=== PATIENT | female | born 1990 | race Caucasian/White ===

== ENCOUNTER → 2021-09-06 10:09 | Outpatient (BNVA) | payer BC, SELFPAY | PROVIDERS: Family Provider Family Medicine; PCP Family Medicine; Visit Provider Family Medicine | DX: Z00.00 Encounter for general adult medical examination without abnormal findings (principal); Z13.220 Encounter for screening for lipoid disorders; Z13.1 Encounter for screening for diabetes mellitus | CPT/HCPCS: 80053; 80061; 83036; 85025 ==

== ENCOUNTER → 2022-09-05 10:06 | Outpatient (BNVA) | payer BC, SELFPAY | PROVIDERS: Family Provider Family Medicine; PCP Family Medicine; Visit Provider Family Medicine | DX: N92.0 Excessive and frequent menstruation with regular cycle (principal); Z13.220 Encounter for screening for lipoid disorders; Z13.1 Encounter for screening for diabetes mellitus; Z51.81 Encounter for therapeutic drug level monitoring | CPT/HCPCS: 80053; 80061; 83036; 83550; 85025 ==

== ENCOUNTER 2022-09-10 08:05 | Outpatient (CLI) | payer BC, SELFPAY ==
--- NOTE | 2022-09-10 08:15 | US_ITS ---
WS: [id number] US pelv w/transvag [id number] HISTORY: Intermenstrual bleeding, heavy periods COMPARISON: None available. Uterus: 10.7 cm x 5.4 cm x 5.6 cm. Normal size retroverted uterus. No fibroid or mass identified. Uterus is anteverted on transabdominal imaging but becomes retroverted during transvaginal imaging. Endometrium: 3.0 cm. Very abnormal appearance of the endometrium. There is mixed echogenicity through out the endometrium. There are hypoechoic and hyperechoic changes throughout the endometrium. Towards the cornua there is mild splitting of the endometrium which could be due to normal endometrium or a mild arcuate anomaly. Right ovary: 3.4 cm x 3.5 cm x 2.6 cm. Normal size and vascularity, no cystic or solid masses. Small follicle maximum diameter is 2.4 cm. Left ovary: 2.9 cm x 2.0 cm x 2.0 cm. Normal size and vascularity, no cystic or solid masses. Dominan t follicle is a maximum diameter of 2.5 cm. No free fluid in the cul-de-sac. US/US pelv w/transvag [id number] IMPRESSION: 1. Abnormal endometrium. Very heterogeneous enlarged endometrium. Endometrium because of more thickened and splits towards the cornua which could be normal o r due to mild arcuate deformity. For further evaluation if thought necessary MR I for uterine anomaly can be obtained. Endometrium and needs to be further eval uated for possible hyperplasia. Endometrial neoplasm is not excluded. Consider direct visualization and biopsy. 2. Bilateral ovarian follicles. No free fluid.
== END 2022-09-10 08:06 | disposition home or self-care (01) ==
LOC: RAD 08:09
PROVIDERS: PCP Family Medicine; Visit Provider Family Medicine
DX: N92.0 Excessive and frequent menstruation with regular cycle (principal)
CPT/HCPCS: 76830; 76856

== ENCOUNTER 2022-10-11 13:24 | Day surgery (SDC) | payer OTHER, SELFPAY ==
[2022-10-11] VITALS (10 sets, daily range): BP systolic 111–163; BP diastolic 60–96; PULSE 46–68; RESP 16–18; TEMP 36.5–36.6; O2SAT 95–100
--- NOTE | 2022-10-11 08:50 | P.HP_ITS ---
Same Day Surgery H&P Indication for Procedure/HPI DATE OF PROCEDURE: October 11, 2022 CHIEF COMPLAINT/INDICATIONFOR SURGICAL PROCEDURE: abnormal uterine bleeding PREOP DIAGNOSIS: abnormal uterine bleeding PLANNED PROCEDURE: Operation Date: 10/11/22 14:55 Proposed Procedures p [Hysteroscopy, endometrial sampling 61907, possible endometrial polypectomy w ith Myosure 57733], N92.0, N85.00(Not Applicable) - North Del Castillo MD s Poylpectomy(Not Applicable) - North Del Castillo MD 32 y.o. periods very heavy x three years they were normal prior to three years ago also with spotting between periods first two days of period very heavy and painful; blood running down legs pelvic sono showed hetergeneous, thickened endometrium now scheduled for hysteroscopy, endometrial sampling, possible endometrial polypectomy Medications/Allergies* NKDA Home Medications Medication Instructions Recorded Confirmed Type levocetirizine 5 mg tablet (Xyzal) 5 mg PO DAILY 09/05/22 10/10/22 History Allergies/Adverse Reactions Allergy/AdvReac Type Severity Reaction Status Date / Time No Known Allergies Allergy Verified 10/10/22 13:32 Pertinent History/Comorbid Conditions* Surgical History (Updated 09/20/22 @ 18:21 by Yusef Kowalski MD) History of delivery History of pilonidal cyst History of tonsillectomy Family History (Updated 09/15/19 @ 14:12 by Cora Canseco LPN) Myocardial infarct Hypertension Stroke Social History Smoking and tobacco status: never smoked Alcohol intake: current Alcohol intake frequency: holidays/special occasions only Substance/Drug Use: never Adopted: No Caregiver/support person: No Lives independently: No Household members: spouse and children Current occupational status: employed Sexually active: Yes Do you think of yourself as: Straight/Heterosexual Current gender identity: Female Pertinent Exam Findings alert, oriented x 3, clear to auscultation bilaterally and regular rate & rhythm Recommendations Surgery/Procedure today Coding Level of Care Code Acute Code for Chg Fwd Diagnoses Time Spent (min) 15
[2022-10-11] MEDS: sodium chloride 0.9% 1,000 ML 30 ML IV (14:04)
--- NOTE | 2022-10-11 14:25 | W.PM.OPSUD ---
Surgery/Procedure H&P Update DATE OF PROCEDURE: October 11, 2022 DATE H&P PERFORMED: 10/10/22 H&P UPDATE INFORMATION: I have reviewed H&P completed within last 30 days, I have examined patient prior to procedure and No changes to prior documentation PREOP DIAGNOSIS: abnormal uterine bleeding PLANNED PROCEDURE: Operation Date: 10/11/22 14:55 Proposed Procedures p [Hysteroscopy, endometrial sampling 83518, possible endometrial polypectomy with Myosure 46470], N92.0, N85.00(Not Applicable) - North Del Castillo MD s Poylpectomy(Not Applicable) - North Del Castillo MD
[2022-10-11 15:17] LABS: OR HCG Qualitative Urine Negative (Negative)
--- NOTE | 2022-10-11 15:26 | ANES.PREANE2 ---
Pre-Anesthetic Assessment Height/Weight: Height 1.83 m Temp Pulse Resp BP Pulse Ox O2 Del Method 97.8 F 66 18 163/96 95 Room Air 10/11/22 14:05 10/11/22 14:05 10/11/22 14:05 10/11/22 14:05 10/11/22 14:05 10/11/22 14:05 Preop Diagnosis: abnormal uterine bleeding Operation Date: 10/11/22 14:55 Proposed Procedures p [Hysteroscopy, endometrial sampling 65131, possible endometrial polypectomy with Myosure 02697], N92.0, N85.00(Not Applicable) - North Del Castillo MD s Poylpectomy(Not Applicable) - North Del Castillo MD Familial anesthetic complications: none Was Beta Radha taken within 24 hours: N/A Was Clonidine taken within 24 hours: N/A Last intake: Intake Last Liquid Date 10/11/22 Last Liquid Time 09:00 Last Solid Date 10/10/22 Last Solid Time 18:00 Social No alcohol and No tobacco Exam alert, oriented x 3, clear to auscultation bilaterally and regular rate & rhythm Airway Submandibular: within normal limits Cervical ROM: within normal limits Mallampati: Class II Dentition: full History/ROS No significant history except as noted Metabolic Morbid Obesity Anesthetic Plan ASA status: 2 Anesthesia: General Medications/Allergies Home Medications Medication Instructions Recorded Confirmed Last Taken Type levocetirizine 5 mg tablet (Xyzal) 5 mg PO DAILY 09/05/22 10/10/22 10/10/22 History Allergies Allergy/AdvReac Type Severity Reaction Status Date / Time No Known Allergies Allergy Verified 10/11/22 13:42 Current Medications Generic Name Dose Route Start Last Admin Trade Name Freq PRN Reason Stop Dose Admin Sodium Chloride 1,000 mls @ 30 mls/hr 10/11/22 13:45 10/11/22 14:04 Sodium Chloride 0.9% IV 10/12/22 13:44 30 mls/hr .Q24H CLEMENTINA Administration PFSH Anesthesia Surgical History (Updated 09/20/22 @ 18:21 by Yusef Kowalski MD) History of delivery History of pilonidal cyst History of tonsillectomy Family History Other Hypertension Myocardial infarct Stroke Social History Smoking and tobacco status: never smoked Alcohol intake: current Alcohol intake frequency: holidays/special occasions only Substance/Drug Use: never Adopted: No Caregiver/support person: No Lives independently: No Household members: spouse and children Current occupational status: employed Sexually active: Yes Do you think of yourself as: Straight/Heterosexual Current gender identity: Female Data Anesthesia Cardiac Studies: No Data to Display
--- NOTE | 2022-10-11 16:43 | ANE.PACU2 ---
Inpatient post-anesthesia follow up: Airway intact: Yes Vital signs: Temperature 97.7 F Pulse Rate 57 Respiratory Rate 16 Blood Pressure 141/84 Pulse Oximetry 99 Oxygen Delivery Me thod Room Air Oxygen Flow Rate 6 Fraction of Inspir ed Oxygen Hydration adequate: Yes Nausea and vomiting: No Pain level: 2 Mental status: Baseline
--- NOTE | 2022-10-11 22:32 | PM.OP ---
Operative Report Date of procedure: October 11, 2022 Pre-op diagnosis: Preop Diagnosis abnormal uterine bleeding Post-op diagnosis: same Post-op findings: multiple small polyps + moderate amount of endometrial tissue in irregular fashion Procedure done: hysteroscopy Endometrial polypectomy and sampling with Myosure Curettage of uterus Specimens removed/disposition: endometrial tissue Surgeon: North Del Castillo MD Anesthesia: MAC Estimated blood loss (mL): 0 Complications: none Brief History: 32 y.o. with abnormal uterine bleeding Procedure: Informed consent signed. Patient taken to the operating room. Anesthesia induced. Patient was placed in dorsolithotomy position, prepped and draped for hysteroscopy. A bivalve speculum was placed in the vagina. The anterior lip of the cervix was grasped with a sharp-toothed tenaculum. The cervix was serially dilated with Hegar dilators. . A hysteroscope was placed into the endometrial cavity. There were multiple small polyps. There was moderate amount of endometrial tissue arranged in irregular fashion. A Myosure device was used to perform polypectomy and also to obtain endometrial tissue. The hysteroscope and Myosure device were then removed. A sharp curette was then used to obtain endometrial tissue. All tissue sent to pathology. The sharp-toothed tenaculum was removed. There was no bleeding from the endometrial cavity or cervix. The patient was then placed supine and awakened and taken to the PACU. Postop condition: stable EBL: none Sponge and instruments counts were normal x 2 Complications: none
== END 2022-10-11 17:10 | disposition home or self-care (01) ==
PROVIDERS: Anesthesiology; PCP Family Medicine; Visit Provider Obstetrics & Gynecology
PROC: 0UDB8ZZ Extraction of Endometrium, Via Natural or Artificial Opening Endoscopic (ICD-10-PCS; CPT 58558; principal; 2022-10-11 14:45)
PROC: (CPT 58558; 2022-10-11 14:45)
DX: N84.0 Polyp of corpus uteri (principal); E66.01 Morbid (severe) obesity due to excess calories
CPT/HCPCS: 58558; 81025; 84703; 88305; J1100; J1885; J2250; J2405; J2704; J3010; J7030

== ENCOUNTER → 2022-10-25 08:54 | Outpatient (BNVA) | payer OTHER, SELFPAY | PROVIDERS: PCP Family Medicine; Visit Provider Obstetrics & Gynecology | DX: Z30.9 Encounter for contraceptive management, unspecified (principal) | CPT/HCPCS: 81025 ==

== ENCOUNTER → 2024-02-14 11:06 | Outpatient (BNVA) | payer OTHER, SELFPAY | PROVIDERS: PCP Family Medicine; Visit Provider Student in an Organized Health Care Education/Training Program | DX: M70.72 Other bursitis of hip, left hip (principal); M70.62 Trochanteric bursitis, left hip; M25.552 Pain in left hip | CPT/HCPCS: 73502 ==

== ENCOUNTER → 2024-02-18 06:13 | Outpatient (BNVA) | payer OTHER, SELFPAY | PROVIDERS: PCP Family Medicine; Visit Provider Student in an Organized Health Care Education/Training Program | DX: M70.72 Other bursitis of hip, left hip (principal); M70.62 Trochanteric bursitis, left hip; M25.552 Pain in left hip | CPT/HCPCS: 85025 ==

== ENCOUNTER → 2024-02-21 07:37 | Outpatient (BNVA) | payer OTHER, SELFPAY | PROVIDERS: PCP Family Medicine; Visit Provider Family Medicine | DX: R53.81 Other malaise (principal); R53.83 Other fatigue; Z13.220 Encounter for screening for lipoid disorders; Z13.1 Encounter for screening for diabetes mellitus; Z51.81 Encounter for therapeutic drug level monitoring; E55.9 Vitamin D deficiency, unspecified; Z87.42 Personal history of other diseases of the female genital tract; N93.9 Abnormal uterine and vaginal bleeding, unspecified | CPT/HCPCS: 80053; 80061; 82306; 83036; 84443; 85025 ==

== ENCOUNTER 2025-03-04 09:01 | Outpatient (CLI) | payer OTHER, SELFPAY ==
[2025-03-04 09:23] LABS: Hematocrit 37.6 % (36-47); Hemoglobin 12.70 g/dL (11.27-16.99); Mean Corpuscular HGB Conc 33.8 g/dL (30-55); Mean Corpuscular Hemoglobin 30.6 pg (27-33); Mean Corpuscular Volume 90.6 fl (85-98); Nucleated Red Blood Cells % 0 %; Platelet Count 221 10^3/cmm (157-399); Red Blood Count 4.15 10^6/uL (3.85-5.65); White Blood Count 4.83 10^3/uL (3.29-11.43)
[2025-03-04 09:45] LABS: Alanine Aminotransferase 27 U/L (0-33); Albumin Level 4.0 g/dL (3.5-5.2); Alkaline Phosphatase 48 U/L (35-105); Anion Gap 14.0 (5-19); Aspartate Amino Transferase 27 U/L (0-32); Blood Urea Nitrogen 10 mg/dL (6-20); Calcium 8.6 mg/dL (8.5-10.5); Carbon Dioxide 25 mmol/L (22-29); Chloride 102 mmol/L (98-107); Globulin 2.5 g/dL (1.3-4.6); Glucose 98 mg/dL (65-115); Osmolality Calculated 283 mOsm/kg (285-295); Potassium 4.0 mmol/L (3.5-5.1); Sodium 137 mmol/L (136-145); Total Protein 6.5 g/dL (6.6-8.7)
[2025-03-04 10:06] LABS: Slide Review Slide Review Perform
== END 2025-03-04 09:02 | disposition home or self-care (01) ==
PROVIDERS: PCP Family Medicine; Visit Provider Nurse Practitioner Family
DX: R59.1 Generalized enlarged lymph nodes (principal)
CPT/HCPCS: 36415; 80053; 85025; 85651; 86140

== ENCOUNTER → 2025-03-29 14:46 | Outpatient (BNVA) | payer OTHER, SELFPAY | PROVIDERS: PCP Family Medicine; Visit Provider Family Medicine | DX: R21 Rash and other nonspecific skin eruption (principal) | CPT/HCPCS: 86003; 86008 ==